=== PATIENT | female | born 1960 | race Caucasian/White ===

== ENCOUNTER → 2017-06-25 07:39 | Outpatient (CLI) | payer MEDICARE, OTHER, SELFPAY ==
[2017-06-25 08:50] LABS: Basophils # 0.1 K/mm3 (0-0.2); Basophils % 0.5 % (0.1-2.0); Eosinophils # 0.2 K/mm3 (0.0-0.4); Eosinophils % 2.1 % (0.1-12.0); Hematocrit 42.8 % (37.0-47.0); Hemoglobin 14.8 g/dL (12.2-16.2); Lymphocytes % 29.4 K/mm3 (10-50); Mean Corpuscular HGB Conc 34.7 g/dL (31.8-35.4); Mean Corpuscular Hemoglobin 30.9 pg (27.0-31.2); Mean Corpuscular Volume 89.2 fl (81-99); Mean Platelet Volume 7.8 fl (7.4-10.4); Monocytes # 0.4 K/mm3 (0.1-1.0); Monocytes % 4.1 % (1.7-9.3); Neutrophils # 6.5 K/mm3 (1.8-7.8); Neutrophils % 63.9 % (37.0-80.0); Platelet Count 273 K/mm3 (142-424); Red Cell Distribution Width 14.1 % (11.5-17.5); White Blood Count 10.1 K/mm3 (4.8-10.8)
[2017-06-25 13:00] LABS: Alanine Aminotransferase 39 U/L (12-78); Albumin Level 4.2 gm/dL (3.4-5.0); Albumin/Globulin Ratio 1.3 (1.1-1.8); Alkaline Phosphatase 96 U/L (46-116); Anion Gap 20.5 mEq/L (5-15); Aspartate Amino Transferase 25 U/L (15-37); Bilirubin,Total 0.4 mg/dL (0.2-1.0); Blood Urea Nitrogen 10 mg/dL (7-18); Calcium 9.2 mg/dL (8.5-10.1); Carbon Dioxide 23 mmol/L (21.0-32.0); Chloride 94 mmol/L (98-107); Creatinine,Serum 0.65 mg/dL (0.55-1.02); Estimated Glomerular Filt Rate 94 ml/min (>60); GFR (African American) 114 ML/MIN (>60); Globulin 3.3 gm/dl (1.3-3.2); Glucose 124 mg/dL (74-106); Potassium 3.5 mmoL/L (3.5-5.1); Sodium 134 mmol/L (136-145); Total Protein,Serum 7.5 gm/dL (6.4-8.2)
[2017-06-25 14:20] LABS: Chol/HDL Ratio 3.3 (1-3.5); Cholesterol 111 mg/dL (140-200); HDL Cholesterol 34 mg/dL (29-89); LDL Cholesterol 55 mg/dL (0-130); Triglycerides 110 mg/dL (30-200); VLDL Cholesterol 22 mg/dL (0-40)
== END ==
PROVIDERS: Visit Provider Nurse Practitioner Family
DX: I10 Essential (primary) hypertension (principal); R73.9 Hyperglycemia, unspecified; E78.5 Hyperlipidemia, unspecified; Z72.0 Tobacco use
CPT/HCPCS: 36415; 80053; 80061; 83036; 85025

== ENCOUNTER → 2017-07-14 09:46 | Outpatient (CLI) | payer MEDICARE, OTHER, SELFPAY ==
--- NOTE | 2017-07-14 | MM_ITS ---
MM Dig screening mamm BI w/CAD CAD Screening ORDERING PHYSICIAN : Duke Kohli MD PATIENT AGE: 56 years GENDER: Female INDICATION: Routine screening no hormones previous cyst aspiration left breast Family history. Paternal grandmother with breast cancer postmenopausal COMPARISON. June: 2016, 2015, 2014 2013 & November 2011 TECHNIQUE: Standard CC and MLO images were obtained. Additional axillary cc view both breast included R2 CAD reviewed. FINDINGS: The prior films are very helpful and supportive the heterogeneous, mild asymmetric, moderately dense breast pattern has remain stable bilaterally . . No new areas of significant concern. No dominant mass nor suspicious calcifications. There are some small calcifications bilaterally but these are scattered punctate benign-appearing and can be followed RIGHT BREAST:No significant new areas of concern. Areas of minimal retroareolar density density seen on one view dissipates on another is been seen on multiple previous studies-stable A few tiny punctate benign-appearing calcifications grouped at the superior right breast which appears similar to previous studies and can be followed LEFT BREAST:Scattered areas of density Areas of density seen today are similar to previous studies and dissipate from one view to another. Similar appearance dates back to 2014 IMPRESSION: ...... 1. . No significant new areas of concern Moderately dense heterogeneous breast, with mild asymmetry. Difficult to evaluate mammogram but appears overall stable. Would encourage & emphasized bilateral follow-up in one year. BI-RADS Category: 2 Benign Finding(s) RECOMMENDED FOLLOW-UP: 1YR - 1 YEAR FOLLOW-UP (A letter has been sent to the patient regarding results of the study.)
== END ==
PROVIDERS: Family Provider Nurse Practitioner Family; PCP Internal Medicine Adolescent Medicine; Visit Provider Internal Medicine Adolescent Medicine
DX: Z12.31 Encounter for screening mammogram for malignant neoplasm of breast (principal)
CPT/HCPCS: 77067

== ENCOUNTER → 2017-07-21 10:11 | Outpatient (CLI) | payer MEDICARE, OTHER, SELFPAY ==
--- NOTE | 2017-07-21 10:18 | US_ITS ---
US transvaginal HISTORY: ITS.REASON: Post MENOPAUSAL BLEEDING,DYSPAREUNIA ORDERING PHYSICIAN: Seda Travis PATIENT AGE: 56 years Comparison: None FINDINGS: The uterus measures 6 x 3 x 3.5 cm. The endometrium is slightly thickened at 1 cm. No uterine or endometrial mass evident. The left ovary is 2 x 1.4 cm with an unremarkable appearance. The right ovary is 1.9 x 1 cm and has an unremarkable appearance. There is a small amount fluid in the cul-de-sac. IMPRESSION: Mildly thickened endometrium with small amount of cul-de-sac fluid otherwise negative pelvic ultrasound
== END ==
PROVIDERS: Family Provider Nurse Practitioner Family; PCP Internal Medicine Adolescent Medicine; Visit Provider Nurse Practitioner Family
DX: N95.0 Postmenopausal bleeding (principal); N94.10 Unspecified dyspareunia
CPT/HCPCS: 76830

== ENCOUNTER → 2018-02-11 07:41 | Outpatient (CLI) | payer MEDICARE, OTHER, SELFPAY ==
[2018-02-11 08:31] LABS: Basophils # 0.1 K/mm3 (0-0.2); Basophils % 0.6 % (0.1-2.0); Eosinophils # 0.3 K/mm3 (0.0-0.4); Hematocrit 45.4 % (37.0-47.0); Hemoglobin 15.2 g/dL (12.2-16.2); Lymphocytes # 4.4 K/mm3 (0.7-4.5); Lymphocytes % 34.1 % (10-50); Mean Corpuscular HGB Conc 33.4 g/dL (31.8-35.4); Mean Corpuscular Hemoglobin 30.4 pg (27.0-31.2); Mean Platelet Volume 7.7 fl (7.4-10.4); Monocytes # 0.6 K/mm3 (0.1-1.0); Monocytes % 4.3 % (1.7-9.3); Neutrophils # 7.6 K/mm3 (1.8-7.8); Neutrophils % 58.9 % (37.0-80.0); Platelet Count 320 K/mm3 (142-424); Red Blood Count 4.99 M/mm3 (4.20-5.40); Red Cell Distribution Width 14.9 % (11.5-17.5); White Blood Count 12.8 K/mm3 (4.8-10.8)
[2018-02-11 09:12] LABS: Hemoglobin A1C 6.3 % (0.0-7.0)
[2018-02-11 09:31] LABS: Alanine Aminotransferase 48 U/L (12-78); Albumin Level 4.3 gm/dL (3.4-5.0); Albumin/Globulin Ratio 1.3 (1.1-1.8); Alkaline Phosphatase 99 U/L (46-116); Anion Gap 17.8 mEq/L (5-15); Aspartate Amino Transferase 22 U/L (15-37); Bilirubin,Total 0.3 mg/dL (0.2-1.0); Blood Urea Nitrogen 12 mg/dL (7-18); Calcium 9.3 mg/dL (8.5-10.1); Carbon Dioxide 26 mmol/L (21.0-32.0); Chloride 101 mmol/L (98-107); Chol/HDL Ratio 3.6 (1-3.5); Cholesterol 134 mg/dL (140-200); Creatinine,Serum 0.84 mg/dL (0.55-1.02); Estimated Glomerular Filt Rate 70 ml/min (>60); GFR (African American) 84 ML/MIN (>60); Globulin 3.3 gm/dl (1.3-3.2); Glucose 122 mg/dL (74-106); HDL Cholesterol 37 mg/dL (29-89); LDL Cholesterol 62 mg/dL (0-130); Potassium 3.8 mmoL/L (3.5-5.1); Sodium 141 mmol/L (136-145); Total Protein,Serum 7.6 gm/dL (6.4-8.2); Triglycerides 177 mg/dL (30-200); VLDL Cholesterol 35 mg/dL (0-40)
== END ==
PROVIDERS: Visit Provider Nurse Practitioner Family
DX: Z51.81 Encounter for therapeutic drug level monitoring (principal); R73.03 Prediabetes; E78.5 Hyperlipidemia, unspecified; I10 Essential (primary) hypertension; F25.8 Other schizoaffective disorders
CPT/HCPCS: 36415; 80053; 80061; 83036; 85025

== ENCOUNTER → 2018-05-26 07:04 | Outpatient (CLI) | payer MEDICARE, OTHER, SELFPAY ==
[2018-05-26 08:07] LABS: Basophils # 0.1 K/mm3 (0-0.2); Basophils % 0.6 % (0.1-2.0); Eosinophils # 0.2 K/mm3 (0.0-0.4); Eosinophils % 2.1 % (0.1-12.0); Hematocrit 41.1 % (37.0-47.0); Hemoglobin 14.3 g/dL (12.2-16.2); Lymphocytes # 3.5 K/mm3 (0.7-4.5); Lymphocytes % 30.6 % (10-50); Mean Corpuscular HGB Conc 34.8 g/dL (31.8-35.4); Mean Corpuscular Hemoglobin 30.9 pg (27.0-31.2); Mean Corpuscular Volume 88.8 fl (81-99); Mean Platelet Volume 7.6 fl (7.4-10.4); Monocytes # 0.4 K/mm3 (0.1-1.0); Monocytes % 3.7 % (1.7-9.3); Neutrophils # 7.2 K/mm3 (1.8-7.8); Platelet Count 285 K/mm3 (142-424); Red Blood Count 4.64 M/mm3 (4.20-5.40); Red Cell Distribution Width 14.6 % (11.5-17.5); White Blood Count 11.4 K/mm3 (4.8-10.8)
[2018-05-26 10:51] LABS: Alanine Aminotransferase 33 U/L (12-78); Albumin Level 4.3 gm/dL (3.4-5.0); Albumin/Globulin Ratio 1.3 (1.1-1.8); Alkaline Phosphatase 105 U/L (46-116); Anion Gap 18.2 mEq/L (5-15); Aspartate Amino Transferase 18 U/L (15-37); Bilirubin,Total 0.4 mg/dL (0.2-1.0); Blood Urea Nitrogen 9 mg/dL (7-18); Calcium 9.2 mg/dL (8.5-10.1); Carbon Dioxide 24 mmol/L (21.0-32.0); Chloride 100 mmol/L (98-107); Chol/HDL Ratio 3.7 (1-3.5); Cholesterol 118 mg/dL (140-200); Creatinine,Serum 0.78 mg/dL (0.55-1.02); Estimated Glomerular Filt Rate 76 ml/min (>60); GFR (African American) 92 ML/MIN (>60); Globulin 3.3 gm/dl (1.3-3.2); Glucose 114 mg/dL (74-106); HDL Cholesterol 32 mg/dL (29-89); LDL Cholesterol 60 mg/dL (0-130); Potassium 4.2 mmoL/L (3.5-5.1); Sodium 138 mmol/L (136-145); Total Protein,Serum 7.6 gm/dL (6.4-8.2); Triglycerides 129 mg/dL (30-200); VLDL Cholesterol 26 mg/dL (0-40)
[2018-05-26 12:26] LABS: Hemoglobin A1C 5.9 % (0.0-7.0)
== END ==
PROVIDERS: Visit Provider Nurse Practitioner Family
DX: I10 Essential (primary) hypertension (principal); R73.03 Prediabetes; E78.5 Hyperlipidemia, unspecified; F25.8 Other schizoaffective disorders
CPT/HCPCS: 36415; 80053; 80061; 83036; 85025

== ENCOUNTER → 2018-11-09 15:58 | Outpatient (CLI) | payer MEDICARE, OTHER, SELFPAY ==
--- NOTE | 2018-11-09 16:03 | MM_ITS ---
PROCEDURE: MM DIG SCREENING MAMM BI W/CAD Patient Age:58Y CLINICAL INDICATION: SCREENING A 58-year-old no hormones no new complaints. Previous benign excisional biopsy and cyst aspiration involving both breast. Family history.: Paternal grandmother with breast cancer COMPARISON: [facility] DIG MAMM-SCREEN RENA from 06/22/2014 [facility] DIG MAMM-SCREEN RENA from 06/26/2015 [facility] DIG MAMM-SCREEN RENA W/CAD from 07/09/2016 [facility] MM Dig screening mamm BI w/CAD from 07/14/2017 Also bilateral mammogram studies from November 2011 and 2012 utilized TECHNIQUE: Standard CC and MLO images were obtained. R2 CAD reviewed. FINDINGS: Moderate heterogeneous breast density the stable appearing mild asymmetry . Right breast: No new areas of significant concern The slight asymmetric area of fibroglandular density at the superior breast on MLO view and central breast CC view matches areas seen on previous studies dating back to at least 2015, 2014 as well as back to 2011. Also note small scattered punctate calcifications bilaterally are also similar to previous studies and can be followed bilaterally Left breast: no new areas of significant concern. Similar architecture no dominant mass evident IMPRESSION: Stable bilateral mammogram, with no new areas of significant concern. Moderate breast density Bilateral follow-up in 1 year recommended BI-RAD Category: 2 Benign Finding(s) FOLLOW-UP: 1YR 1 Year Follow-up (A letter has been sent to the patient regarding results of the study.) Dictated by: Mikie Molina MD 11/10/2018 07:38 Electronically signed by Mikie Molina MD in [place] 11/10/2018 07:38
== END ==
PROVIDERS: PCP Internal Medicine Adolescent Medicine; Visit Provider Nurse Practitioner Family
DX: Z12.31 Encounter for screening mammogram for malignant neoplasm of breast (principal)
CPT/HCPCS: 77067

== ENCOUNTER → 2018-12-31 16:28 | Outpatient (CLI) | payer MEDICARE, OTHER, SELFPAY ==
[2018-12-31 17:03] LABS: Basophils # 0.1 K/mm3 (0-0.2); Basophils % 0.6 % (0.1-2.0); Eosinophils # 0.2 K/mm3 (0.0-0.4); Eosinophils % 1.5 % (0.1-12.0); Hematocrit 43.7 % (37.0-47.0); Hemoglobin 14.9 g/dL (12.2-16.2); Lymphocytes # 4.1 K/mm3 (0.7-4.5); Lymphocytes % 26.9 % (10-50); Mean Corpuscular Hemoglobin 30.5 pg (27.0-31.2); Mean Corpuscular Volume 89.6 fl (81-99); Mean Platelet Volume 7.5 fl (7.4-10.4); Monocytes # 0.8 K/mm3 (0.1-1.0); Monocytes % 5.4 % (1.7-9.3); Neutrophils # 10.1 K/mm3 (1.8-7.8); Neutrophils % 65.6 % (37.0-80.0); Platelet Count 374 K/mm3 (142-424); Red Blood Count 4.87 M/mm3 (4.20-5.40); Red Cell Distribution Width 14.4 % (11.5-17.5); White Blood Count 15.4 K/mm3 (4.8-10.8)
[2018-12-31 17:08] LABS: MANUAL DIFFERENTIAL MANUAL DIFFERENTIAL (MANUAL DIFF)
[2018-12-31 17:46] LABS: Hemoglobin A1C 6.2 % (0.0-7.0)
[2018-12-31 18:50] LABS: Lymphocytes % 27 % (10-50); Monocytes % 5 % (2-9); Neutrophils % 66 % (42-76); Platelet Estimate Normal; RBC Morphology Normal; Total Cells Counted 100
[2018-12-31 19:27] LABS: Alanine Aminotransferase 44 U/L (12-78); Albumin Level 4.8 gm/dL (3.4-5.0); Albumin/Globulin Ratio 1.4 (1.1-1.8); Alkaline Phosphatase 109 U/L (46-116); Anion Gap 11.7 mEq/L (5-15); Aspartate Amino Transferase 43 U/L (15-37); Bilirubin,Total 0.3 mg/dL (0.2-1.0); Blood Urea Nitrogen 9 mg/dL (7-18); Carbon Dioxide 30 mmol/L (21.0-32.0); Chloride 94 mmol/L (98-107); Estimated Glomerular Filt Rate 86 ml/min (>60); GFR (African American) 104 ML/MIN (>60); Globulin 3.4 gm/dl (1.3-3.2); Glucose 68 mg/dL (74-106); HDL Cholesterol 51 mg/dL (29-89); Potassium 3.7 mmoL/L (3.5-5.1); Sodium 132 mmol/L (136-145); Thyroid Stimulating Hormone 4.26 uIU/ml (0.358-3.740); Total Protein,Serum 8.2 gm/dL (6.4-8.2); Triglycerides 100 mg/dL (30-200); VLDL Cholesterol 20 mg/dL (0-40)
[2018-12-31 19:37] LABS: Calcium 10.1 mg/dL (8.5-10.1); Chol/HDL Ratio 2.2 (1-3.5); Cholesterol 113 mg/dL (140-200); LDL Cholesterol 42 mg/dL (0-130)
== END ==
PROVIDERS: Visit Provider Nurse Practitioner Family
DX: E78.5 Hyperlipidemia, unspecified (principal); I10 Essential (primary) hypertension; R73.9 Hyperglycemia, unspecified; F25.8 Other schizoaffective disorders
CPT/HCPCS: 36415; 80053; 80061; 83036; 84443; 85007; 85025

== ENCOUNTER → 2019-01-10 11:26 | Outpatient (CLI) | payer MEDICARE, OTHER, SELFPAY ==
[2019-01-10 11:58] LABS: Basophils # 0.1 K/mm3 (0-0.2); Basophils % 0.5 % (0.1-2.0); Eosinophils # 0.2 K/mm3 (0.0-0.4); Eosinophils % 1.9 % (0.1-12.0); Hematocrit 41.7 % (37.0-47.0); Hemoglobin 13.7 g/dL (12.2-16.2); Lymphocytes # 4.4 K/mm3 (0.7-4.5); Lymphocytes % 34.8 % (10-50); Mean Corpuscular Hemoglobin 30.9 pg (27.0-31.2); Mean Corpuscular Volume 93.9 fl (81-99); Monocytes # 0.5 K/mm3 (0.1-1.0); Monocytes % 3.7 % (1.7-9.3); Neutrophils # 7.5 K/mm3 (1.8-7.8); Neutrophils % 59.2 % (37.0-80.0); Platelet Count 311 K/mm3 (142-424); Red Blood Count 4.44 M/mm3 (4.20-5.40); Red Cell Distribution Width 14.7 % (11.5-17.5); White Blood Count 12.6 K/mm3 (4.8-10.8)
[2019-01-10 14:13] LABS: Anion Gap 15.9 mEq/L (5-15); Blood Urea Nitrogen 7 mg/dL (7-18); Calcium 9.2 mg/dL (8.5-10.1); Carbon Dioxide 25 mmol/L (21.0-32.0); Chloride 94 mmol/L (98-107); Creatinine,Serum 0.64 mg/dL (0.55-1.02); Estimated Glomerular Filt Rate 95 ml/min (>60); Free T4 (Free Thyroxine) 0.72 ng/dl (0.76-1.46); GFR (African American) 115 ML/MIN (>60); Glucose 75 mg/dL (74-106); Potassium 3.9 mmoL/L (3.5-5.1); Sodium 131 mmol/L (136-145); Thyroid Stimulating Hormone 3.31 uIU/ml (0.358-3.740)
[2019-01-12 11:30] LABS: Peripheral Smear Review Scanned Result
== END ==
PROVIDERS: Visit Provider Nurse Practitioner Family
DX: E87.1 Hypo-osmolality and hyponatremia (principal); R79.89 Other specified abnormal findings of blood chemistry; D72.9 Disorder of white blood cells, unspecified
CPT/HCPCS: 36415; 80048; 84439; 84443; 85025

== ENCOUNTER → 2019-03-03 11:05 | Outpatient (CLI) | payer MEDICARE, OTHER, SELFPAY ==
[2019-03-03 11:40] LABS: Basophils # 0.1 K/mm3 (0-0.2); Basophils % 0.8 % (0.1-2.0); Eosinophils # 0.3 K/mm3 (0.0-0.4); Eosinophils % 2.9 % (0.1-12.0); Hematocrit 40.3 % (37.0-47.0); Hemoglobin 13.4 g/dL (12.2-16.2); Lymphocytes # 3.3 K/mm3 (0.7-4.5); Mean Corpuscular HGB Conc 33.3 g/dL (31.8-35.4); Mean Corpuscular Hemoglobin 30.7 pg (27.0-31.2); Mean Platelet Volume 8.2 fl (7.4-10.4); Monocytes # 0.4 K/mm3 (0.1-1.0); Monocytes % 3.6 % (1.7-9.3); Neutrophils # 5.8 K/mm3 (1.8-7.8); Neutrophils % 58.8 % (37.0-80.0); Platelet Count 269 K/mm3 (142-424); Red Blood Count 4.38 M/mm3 (4.20-5.40); Red Cell Distribution Width 14.6 % (11.5-17.5); White Blood Count 9.8 K/mm3 (4.8-10.8)
[2019-03-03 18:28] LABS: Anion Gap 20.6 mEq/L (5-15); Blood Urea Nitrogen 12 mg/dL (7-18); Carbon Dioxide 23 mmol/L (21.0-32.0); Chloride 103 mmol/L (98-107); Creatinine,Serum 0.83 mg/dL (0.55-1.02); Estimated Glomerular Filt Rate 70 ml/min (>60); GFR (African American) 85 ML/MIN (>60); Glucose 117 mg/dL (74-106); Potassium 3.6 mmoL/L (3.5-5.1); Sodium 143 mmol/L (136-145)
== END ==
PROVIDERS: Visit Provider Internal Medicine Medical Oncology
DX: D72.829 Elevated white blood cell count, unspecified (principal)
CPT/HCPCS: 36415; 80048; 85025; 88189

== ENCOUNTER → 2019-03-17 09:22 | Outpatient (CLI) | payer MEDICARE, SELFPAY ==
[2019-03-17 09:54] LABS: Hemoglobin A1C 6.2 % (0.0-7.0)
[2019-03-17 18:55] LABS: Anion Gap 15.7 mEq/L (5-15); Blood Urea Nitrogen 10 mg/dL (7-18); Calcium 9.2 mg/dL (8.5-10.1); Carbon Dioxide 27 mmol/L (21.0-32.0); Chloride 105 mmol/L (98-107); Estimated Glomerular Filt Rate 64 ml/min (>60); GFR (African American) 78 ML/MIN (>60); Glucose 116 mg/dL (74-106); Potassium 3.7 mmoL/L (3.5-5.1); Sodium 144 mmol/L (136-145); Thyroid Stimulating Hormone 2.42 uIU/ml (0.358-3.740)
== END ==
PROVIDERS: Visit Provider Nurse Practitioner Family
DX: R73.9 Hyperglycemia, unspecified (principal); E87.1 Hypo-osmolality and hyponatremia
CPT/HCPCS: 36415; 80048; 83036; 84443

== ENCOUNTER → 2019-03-18 08:13 | Outpatient (CLI) | payer MEDICARE, SELFPAY ==
--- NOTE | 2019-03-18 08:19 | CT_ITS ---
PROCEDURE: CT LUNG SCREENING CLINICAL INDICATION: CURRENT TOBACOO USE Forty pack-year smoking history, asymptomatic for lung cancer COMPARISON: No exams were available for comparison TECHNIQUE: The exam was performed on a GE Light Speed [address] scanner using 2.90 mGy CTDI. A low dose helical CT CHEST was performed on a multi-detector scanner. All CT scans at the facility use one or more dose reduction, viz: automated exposure control, ma/kV adjustment per patient size (including targeted exams where dose is matched to indication, i.e. head), or iterative reconstruction technique. The LDCT was performed in a facility that meets the criteria for the screening program. Data regarding this exam was submitted to ACR which is an approved registry. The order for this exam indicates that it came as a result of a lung cancer screening counseling shard decision-making visit that included all the elements required of such a visit including smoking cessation. The radiologist interpreting this exam meets the CMS criteria for the LDCT lung cancer screening program. The exam is reported using the Lung-RADS classification scale and reported to the ACR registry. NOTE: This study was performed for the specific purposes of lung cancer screening and is not an alternative to diagnostic chest CT. RADIATION DOSE: CTDI vol(CT dose Index-volume) = 2.90mG DLP (Dose Length Product) = 106.03 mGcm Lung Rads Category: FINDINGS: Changes of COPD with scattered areas of scarring and evidence of old granulomatous disease. There is a 5 mm subpleural nodule in the left lower lobe laterally series 4, image 54. 4 mm nodular opacity right apex centrally series 4, image 18. No central obstructing lesion. No hilar mass or mediastinal mass. OTHER FINDINGS: Hiatal hernia. Coronary artery calcifications. There is a left renal mass which is incompletely imaged occupying the mid and upper aspect of the left kidney. This measures at least 8 cm transverse and 4.8 cm AP. IMPRESSION: Lung rads category 3 probably benign nodules in the left lower lobe and right upper lobe. Recommend six-month chest CT follow-up Incompletely imaged left renal mass suspicious for neoplasm. Recommend abdomen CT without and with contrast with delayed imaging/renal protocol for further evaluation Dictated by: Gigi Alberts MD 03/22/2019 08:50 Electronically signed by Gigi Alberts MD in [place] 03/22/2019 08:50
== END ==
PROVIDERS: PCP Internal Medicine Adolescent Medicine; Visit Provider Internal Medicine Medical Oncology
DX: Z87.891 Personal history of nicotine dependence (principal); Z12.2 Encounter for screening for malignant neoplasm of respiratory organs

== ENCOUNTER → 2019-03-24 12:13 | Outpatient (CLI) | payer MEDICARE, OTHER, SELFPAY ==
[2019-03-24 13:07] LABS: Blood Urea Nitrogen 11 mg/dL (7-18); Creatinine,Serum 0.78 mg/dL (0.55-1.02); Estimated Glomerular Filt Rate 76 ml/min (>60); GFR (African American) 91 ML/MIN (>60)
== END ==
PROVIDERS: Visit Provider Nurse Practitioner Family
DX: R73.03 Prediabetes (principal)
CPT/HCPCS: 36415; 82565; 84520

== ENCOUNTER → 2019-03-29 08:39 | Outpatient (CLI) | payer MEDICARE, SELFPAY ==
--- NOTE | 2019-03-29 08:48 | CT_ITS ---
PROCEDURE: CT ABDOMEN WO/W CON CLINICAL HISTORY: RENAL MASS Follow-up renal mass. Suspected renal mass noted on screening lung CT COMPARISON: CT LUNG SCREENING from 03/18/2019 TECHNIQUE: Exam is performed without and with contrast. 75 mL Optiray 350 utilized. Delayed images are also obtained. Axial images obtained with sagittal and coronal reformats. All CT scans at the facility use one or more dose reduction, viz: automated exposure control, ma/kV adjustment per patient size (including targeted exams where dose is matched to indication, i.e. head), or iterative reconstruction technique. FINDINGS: There is calcified granuloma in the right lung base. The coronary artery calcifications are present in there is mild thickening of the pericardium. There is a small hiatal hernia. The liver, gallbladder, right kidney, adrenal glands, and pancreas have an unremarkable appearance as does the spleen. There is moderate to severe left hydronephrosis with dilatation of the pelvicaliceal system and the renal pelvis. The ureter is not dilated. These findings are consistent with high-grade UPJ stenosis/obstruction. A renal mass is not apparent. IMPRESSION: High-grade left-sided UPJ stenosis/obstruction with moderate to severe hydrocephalus. A renal mass is not identified. The abnormality noted on the screening CT is related to the hydronephrosis Dictated by: Gigi Alberts MD 03/30/2019 12:50 Electronically signed by Gigi Alberts MD in [place] 03/30/2019 12:50
== END ==
PROVIDERS: PCP Internal Medicine Adolescent Medicine; Visit Provider Nurse Practitioner Family
DX: N28.89 Other specified disorders of kidney and ureter (principal)
CPT/HCPCS: 74170; Q9967

== ENCOUNTER → 2019-04-04 12:25 | Outpatient (CLI) | payer MEDICARE, SELFPAY ==
--- NOTE | 2019-04-04 12:45 | NM_ITS ---
PROCEDURE: NM RENAL FLOW W PHARM INT CLINICAL INDICATION: LT UPJ OBSTRUCTION COMPARISON: No exams were available for comparison TECHNIQUE: Routine exam was performed after 9.8 millicuries technetium 99 M Mag 3 administration. 40 milligrams of Lasix was given total 20 milligrams at 15 minutes and 20 milligrams at 16 minutes into the exam. FINDINGS: There is a delayed left nephrogram. The T-max for the left kidney is 20.9 minutes and that for the right kidney 11.4 minutes. Percent excreted at 15 minutes was 10 percent for left kidney and 37 percent for right kidney. Relative function was left kidney 54 percent and right kidney 46 percent. The pre Lasix left renal time activity curve was continuously upsloping. Post Lasix renal curves demonstrate a gradual decline in activity in the left kidney with rapid decline in the right kidney. IMPRESSION: Findings consistent with some degree of left urinary tract obstruction but downsloping curve post Lasix administration argues against high-grade obstruction. Dictated by: Jr Vale 04/04/2019 16:20 Electronically signed by Jr Vale in [place] 04/04/2019 16:20
== END ==
PROVIDERS: PCP Internal Medicine Adolescent Medicine; Visit Provider Urology
DX: N21.1 Calculus in urethra (principal)
CPT/HCPCS: 78708; A9562

== ENCOUNTER → 2019-04-07 15:21 | Outpatient (CLI) | payer MEDICARE, OTHER, SELFPAY | PROVIDERS: Visit Provider Urology | DX: N21.1 Calculus in urethra (principal) | CPT/HCPCS: 87086 ==

== ENCOUNTER → 2019-07-28 09:04 | Outpatient (CLI) | payer MEDICARE, OTHER, SELFPAY ==
[2019-07-28 10:03] LABS: Basophils # 0.1 K/mm3 (0-0.2); Basophils % 0.6 % (0.1-2.0); Eosinophils # 0.4 K/mm3 (0.0-0.4); Eosinophils % 3.2 % (0.1-12.0); Hematocrit 40.1 % (37.0-47.0); Hemoglobin 13.3 g/dL (12.2-16.2); Lymphocytes # 3.1 K/mm3 (0.7-4.5); Lymphocytes % 27.8 % (10-50); Mean Corpuscular HGB Conc 33.2 g/dL (31.8-35.4); Mean Corpuscular Hemoglobin 30.3 pg (27.0-31.2); Mean Corpuscular Volume 91.3 fl (81-99); Mean Platelet Volume 8.2 fl (7.4-10.4); Monocytes # 0.4 K/mm3 (0.1-1.0); Monocytes % 3.4 % (1.7-9.3); Neutrophils # 7.3 K/mm3 (1.8-7.8); Platelet Count 250 K/mm3 (142-424); Red Blood Count 4.39 M/mm3 (4.20-5.40); Red Cell Distribution Width 13.9 % (11.5-17.5); White Blood Count 11.3 K/mm3 (4.8-10.8)
[2019-07-28 11:04] LABS: Chloride 103 mmol/L (98-107); Potassium 4.1 mmoL/L (3.5-5.1); Sodium 138 mmol/L (136-145)
[2019-07-28 11:06] LABS: Alanine Aminotransferase 37 U/L (12-78); Aspartate Amino Transferase 29 U/L (14-36); Blood Urea Nitrogen 11 mg/dl (7-17); Estimated Glomerular Filt Rate 102 ml/min (>60); GFR (African American) 123 ML/MIN (>60)
[2019-07-28 11:07] LABS: Albumin Level 4.6 g/dl (3.5-5.0); Albumin/Globulin Ratio 1.8 (1.1-1.8); Alkaline Phosphatase 101 U/L (38-126); Anion Gap 14.1 mEq/L (5-15); Bilirubin,Total 0.5 mg/dl (0.2-1.3); Calcium 9.5 mg/dl (8.4-10.2); Carbon Dioxide 25 mmol/L (22.0-30.0); Globulin 2.6 g/dL (1.3-3.2); Glucose 160 mg/dl (74-100); Total Protein,Serum 7.2 g/dl (6.3-8.2)
[2019-07-28 11:28] LABS: Hemoglobin A1C 6.7 % (4.0-6.0)
[2019-07-28 11:37] LABS: Thyroid Stimulating Hormone 2.88 uIU/mL (0.465-4.68)
[2019-07-29 10:10] LABS: MANUAL DIFFERENTIAL MANUAL DIFFERENTIAL (MANUAL DIFF)
[2019-07-29 11:10] LABS: Eosinophils % 2 % (0-3); Lymphocytes % 41 % (10-50); Monocytes % 7 % (2-9); Neutrophils % 50 % (42-76); Total Cells Counted 100
[2019-07-29 11:11] LABS: Burr Cells 1+; Platelet Estimate Normal; Poikilocytosis 1+
== END ==
PROVIDERS: Visit Provider Nurse Practitioner Family
DX: R73.03 Prediabetes (principal); E03.9 Hypothyroidism, unspecified; D72.9 Disorder of white blood cells, unspecified; I10 Essential (primary) hypertension
CPT/HCPCS: 36415; 80053; 83036; 84443; 85007; 85014; 85018; 85025; 85048; 85049

== ENCOUNTER → 2019-08-11 08:56 | Outpatient (CLI) | payer MEDICARE, SELFPAY ==
[2019-08-11 10:11] LABS: Blood Urea Nitrogen 11 mg/dl (7-17); Estimated Glomerular Filt Rate 85 ml/min (>60); GFR (African American) 103 ML/MIN (>60)
== END ==
PROVIDERS: Visit Provider Internal Medicine Medical Oncology
DX: R91.8 Other nonspecific abnormal finding of lung field (principal)
CPT/HCPCS: 36415; 82565; 84520

== ENCOUNTER → 2019-08-16 13:28 | Outpatient (CLI) | payer MEDICARE, SELFPAY ==
--- NOTE | 2019-08-16 13:35 | CT_ITS ---
PROCEDURE: CT CHEST W CON CLINCAL INDICATION: LUNG NODULES Follow-up lung nodules COMPARISON: CT LUNG SCREENING from 03/18/2019 CT ABDOMEN WO/W CON from 03/29/2019 TECHNIQUE: IV Contrast: 75ml Optiray 350 Axial images obtained with sagittal and coronal reformats. All CT scans at the facility use one or more dose reduction, viz: automated exposure control, ma/kV adjustment per patient size (including targeted exams where dose is matched to indication, i.e. head), or iterative reconstruction technique. FINDINGS: HEART AND MEDIASTINAL STRUCTURES: Minimal pericardial thickening posteriorly measuring up to 5 mm. No mediastinal or hilar mass or adenopathy. There is mild nonspecific thickening of the esophagus distally LUNGS AND PLEURAL SPACES: COPD with scattered areas of scarring. 4 mm noncalcified nodule right upper lobe centrally probably. This appears slightly more prominent but could be related to the slice orientation. Continued follow-up is suggested. Subpleural 4 mm nodular opacity noted in the right upper lobe posteriorly probably unchanged image number 21. Evidence of old granulomatous disease. There are trace bilateral effusions which have developed since the previous exam. No change in the 4 mm subpleural nodule in the left lower lobe the. There are some atelectatic changes in the left lung base laterally which have developed since the previous exam. No new nodules are evident. BONY STRUCTURES: No acute bony abnormalities apparent. UPPER ABDOMEN: Small hiatal hernia. Fatty liver. The left kidney is not included on today's exam. ADDITIONAL FINDINGS: No other significant abnormalities. IMPRESSION: There are small bilateral pulmonary nodules. The right apical nodule may be slightly more prominent but could be related to technique. Recommend continued six-month follow-up. Small bilateral pleural effusions with left basilar atelectasis Other nonacute findings as detailed above with COPD Dictated by: Gigi Alberts MD 08/17/2019 12:45 Electronically signed by Gigi Alberts MD in [place] 08/17/2019 12:45
== END ==
PROVIDERS: PCP Internal Medicine Adolescent Medicine; Visit Provider Internal Medicine Medical Oncology
DX: R91.8 Other nonspecific abnormal finding of lung field (principal)
CPT/HCPCS: 71260; Q9967

== ENCOUNTER → 2019-12-09 13:09 | Outpatient (CLI) | payer MEDICARE, SELFPAY ==
--- NOTE | 2019-12-09 13:15 | MM_ITS ---
PROCEDURE: MM DIG SCREENING MAMM BI W/CAD Digital Breast Tomosynthesis Included CLINICAL INDICATION: SCREENING There is a history of breast cancer in the patient's paternal grandmother. There have been previous biopsies on each breast for benign disease. COMPARISON: MG [facility] DIG MAMM-SCREEN RENA W/CAD from 07/09/2016 [facility] MM Dig screening mamm BI w/CAD from 07/14/2017 MG MM DIG SCREENING MAMM BI W/CAD from 11/09/2018 TECHNIQUE: Standard CC and MLO images and 3D Tomosynthesis was obtained. R2 CAD reviewed. FINDINGS: Moderate diffuse somewhat heterogenic fibroglandular densities are seen in both breasts. There is a mole marker left breast. There are couple of benign-appearing microcalcifications in each breast. There is no suspicious lesion and no suspicious microcalcifications. IMPRESSION: Moderate diffuse breast density with no suspicious lesions seen BI-RAD Category: 2 Benign Finding(s) FOLLOW-UP: 1YR 1 Year Follow-up (A letter has been sent to the patient regarding results of the study.) Dictated by: Dr. Antwan Avila MD 12/13/2019 16:43 Dr. Antwan Avila MD in [place] 12/13/2019 16:43
== END ==
PROVIDERS: PCP Internal Medicine Adolescent Medicine; Visit Provider Nurse Practitioner Family
DX: Z12.31 Encounter for screening mammogram for malignant neoplasm of breast (principal)
CPT/HCPCS: 77063; 77067

== ENCOUNTER → 2020-02-06 16:03 | Outpatient (CLI) | payer MEDICARE, SELFPAY ==
[2020-02-06 16:40] LABS: Basophils # 0.1 K/mm3 (0-0.2); Eosinophils # 0.4 K/mm3 (0.0-0.4); Eosinophils % 3.1 % (0.1-12.0); Hematocrit 43.3 % (37.0-47.0); Hemoglobin 14.5 g/dL (12.2-16.2); Lymphocytes # 4.8 K/mm3 (0.7-4.5); Lymphocytes % 34.7 % (10-50); Mean Corpuscular HGB Conc 33.5 g/dL (31.8-35.4); Mean Corpuscular Hemoglobin 30.4 pg (27.0-31.2); Mean Platelet Volume 8.1 fl (7.4-10.4); Monocytes # 0.5 K/mm3 (0.1-1.0); Monocytes % 3.6 % (1.7-9.3); Neutrophils # 7.9 K/mm3 (1.8-7.8); Neutrophils % 57.6 % (37.0-80.0); Platelet Count 317 K/mm3 (142-424); Red Blood Count 4.76 M/mm3 (4.20-5.40); Red Cell Distribution Width 14.7 % (11.5-17.5); White Blood Count 13.7 K/mm3 (4.8-10.8)
[2020-02-06 17:06] LABS: Alanine Aminotransferase 38 U/L (12-78); Albumin Level 5.3 g/dl (3.5-5.0); Albumin/Globulin Ratio 1.7 (1.1-1.8); Alkaline Phosphatase 107 U/L (38-126); Anion Gap 12.7 mEq/L (5-15); Aspartate Amino Transferase 35 U/L (14-36); Bilirubin,Total 0.4 mg/dl (0.2-1.3); Blood Urea Nitrogen 12 mg/dl (7-17); Calcium 10.2 mg/dl (8.4-10.2); Carbon Dioxide 30 mmol/L (22.0-30.0); Chloride 100 mmol/L (98-107); Chol/HDL Ratio 3.4 (1-3.5); Cholesterol 147 mg/dl (140-200); Estimated Glomerular Filt Rate 73 ml/min (>60); GFR (African American) 89 ML/MIN (>60); Globulin 3.1 g/dL (1.3-3.2); Glucose 94 mg/dl (74-100); HDL Cholesterol 43 mg/dl (40-60); Potassium 3.7 mmoL/L (3.5-5.1); Sodium 139 mmol/L (136-145); Total Protein,Serum 8.4 g/dl (6.3-8.2); Triglycerides 266 mg/dl (30-150); VLDL Cholesterol 53 mg/dL (0-40)
[2020-02-06 17:17] LABS: Direct LDL Cholesterol 65.96 mg/dL (100-129)
[2020-02-06 17:36] LABS: Thyroid Stimulating Hormone 4.73 uIU/mL (0.465-4.68)
[2020-02-06 18:58] LABS: Hemoglobin A1C 6.1 % (4.0-6.0)
== END ==
PROVIDERS: Visit Provider Nurse Practitioner Family
DX: I10 Essential (primary) hypertension (principal); E78.5 Hyperlipidemia, unspecified; R73.03 Prediabetes; D72.9 Disorder of white blood cells, unspecified; E03.9 Hypothyroidism, unspecified
CPT/HCPCS: 36415; 80053; 80061; 83036; 84443; 85025

== ENCOUNTER → 2020-02-28 14:19 | Outpatient (CLI) | payer MEDICARE, SELFPAY ==
--- NOTE | 2020-02-28 14:36 | CT_ITS ---
PROCEDURE: CT CHEST W CON CLINCAL INDICATION: LUNG NODULE follow up COMPARISON: CT CT CHEST W CON from 08/16/2019 TECHNIQUE: IV Contrast: 75ml Isovue 370 Axial images obtained with sagittal and coronal reformats. All CT scans at the facility use one or more dose reduction, viz: automated exposure control, ma/kV adjustment per patient size (including targeted exams where dose is matched to indication, i.e. head), or iterative reconstruction technique. FINDINGS: HEART AND MEDIASTINAL STRUCTURES: Unremarkable. LUNGS AND PLEURAL SPACES: There remain small pulmonary nodular opacities as previously described. These do not significantly changed. Nodules identified. There is a calcified granuloma in the right lower lobe. There are trace bilateral effusions. Changes of COPD BONY STRUCTURES: No acute bony abnormalities apparent. UPPER ABDOMEN: Fatty liver. Severe left-sided hydronephrosis which is incompletely imaged. ADDITIONAL FINDINGS: No other significant abnormalities. IMPRESSION: Overall stable CT appearance of the chest. No change in the small pulmonary nodules and trace bilateral pleural effusions. Severe left-sided hydronephrosis. This was described on a previous abdomen CT of 03/29/2019. Dictated by: Gigi Alberts MD 02/29/2020 09:09 Gigi Alberts MD in [place] 02/29/2020 09:09
[2020-02-28 14:38] LABS: Basophils # 0.1 K/mm3 (0-0.2); Basophils % 0.9 % (0.1-2.0); Eosinophils # 0.4 K/mm3 (0.0-0.4); Hematocrit 42.5 % (37.0-47.0); Lymphocytes # 4.7 K/mm3 (0.7-4.5); Lymphocytes % 36.6 % (10-50); Mean Corpuscular Hemoglobin 30.6 pg (27.0-31.2); Mean Corpuscular Volume 92.7 fl (81-99); Mean Platelet Volume 8.3 fl (7.4-10.4); Monocytes # 0.5 K/mm3 (0.1-1.0); Monocytes % 3.9 % (1.7-9.3); Neutrophils # 7.2 K/mm3 (1.8-7.8); Neutrophils % 55.5 % (37.0-80.0); Platelet Count 290 K/mm3 (142-424); Red Blood Count 4.58 M/mm3 (4.20-5.40); White Blood Count 12.9 K/mm3 (4.8-10.8)
[2020-02-28 14:51] LABS: Blood Urea Nitrogen 11 mg/dl (7-17); Estimated Glomerular Filt Rate 85 ml/min (>60); GFR (African American) 103 ML/MIN (>60)
== END ==
PROVIDERS: Visit Provider Internal Medicine Medical Oncology
DX: R91.1 Solitary pulmonary nodule (principal)
CPT/HCPCS: 36415; 71260; 82565; 84520; 85025; Q9967

== ENCOUNTER → 2020-04-17 12:46 | Outpatient (CLI) | payer MEDICARE, SELFPAY ==
--- NOTE | 2020-04-17 12:52 | NM_ITS ---
PROCEDURE: NM RENAL FLOW AND FUNCTION CLINICAL INDICATION: left upj obstruction-- lasix w-T 02/17 COMPARISON: CT CT ABDOMEN WO/W CON from 03/29/[address] CHEST W CON from 02/28/2020 TECHNIQUE: Dose 9.94 mCi technetium Mag 3. 40 mg Lasix given IV at 15 minutes FINDINGS: Flow images show slight decrease intensity of the left kidney compared to the right additionally. There is delayed ureteral excretion of the left kidney. Periphery in [place] uptake is 60 percent to the left kidney in 40 percent to the right kidney. At 20 minutes only a percent of the left renal contents had emptied and 88 percent on the right. T max on the right 4.2 minutes. T max on the left 17.7 minutes. Kidney T half max on the right is 15.7 minutes and on the left is 6 minutes. The left renal curve rises and peaks at 18 minutes. The curved continued to rise slightly after Lasix administration but then began coming down. One would expect a curve to increased much more if there was an obstruction therefore, it was felt that the hydronephrosis on the left is secondary to a patulous system as opposed to a UPJ obstruction.. There may have once been a obstruction at the UPJ with chronic left-sided hydronephrosis. IMPRESSION: Overall, the findings are consistent with a dilated left renal collecting system as opposed to a UPJ obstruction. Dictated by: Gigi Alberts MD 04/18/2020 13:50 Gigi Alberts MD in [place] 04/18/2020 13:50
== END ==
PROVIDERS: PCP Internal Medicine Adolescent Medicine; Visit Provider Urology
DX: N13.5 Crossing vessel and stricture of ureter without hydronephrosis (principal)
CPT/HCPCS: 78707; A9562

== ENCOUNTER → 2020-08-30 14:54 | Outpatient (CLI) | payer MEDICARE, OTHER, SELFPAY ==
[2020-08-30 15:30] LABS: Basophils # 0.1 K/mm3 (0-0.2); Basophils % 1.1 % (0.1-2.0); Eosinophils # 0.4 K/mm3 (0.0-0.4); Eosinophils % 2.8 % (0.1-12.0); Hematocrit 38.2 % (37.0-47.0); Hemoglobin 13.3 g/dL (12.2-16.2); Lymphocytes # 4.5 K/mm3 (0.7-4.5); Lymphocytes % 35.5 % (10-50); Mean Corpuscular HGB Conc 34.7 g/dL (31.8-35.4); Mean Corpuscular Hemoglobin 29.9 pg (27.0-31.2); Mean Corpuscular Volume 86.1 fl (81-99); Mean Platelet Volume 8.3 fl (7.4-10.4); Monocytes # 0.5 K/mm3 (0.1-1.0); Monocytes % 3.9 % (1.7-9.3); Neutrophils # 7.2 K/mm3 (1.8-7.8); Neutrophils % 56.7 % (37.0-80.0); Platelet Count 275 K/mm3 (142-424); Red Blood Count 4.44 M/mm3 (4.20-5.40); Red Cell Distribution Width 14.8 % (11.5-17.5); White Blood Count 12.8 K/mm3 (4.8-10.8)
[2020-08-30 16:10] LABS: Hemoglobin A1C 6.2 % (4.0-6.0)
[2020-08-30 16:23] LABS: Alanine Aminotransferase 38 U/L (12-78); Albumin Level 4.9 g/dl (3.5-5.0); Albumin/Globulin Ratio 1.9 (1.1-1.8); Alkaline Phosphatase 95 U/L (38-126); Anion Gap 17.1 mEq/L (5-15); Aspartate Amino Transferase 31 U/L (14-36); Bilirubin,Total 0.4 mg/dl (0.2-1.3); Blood Urea Nitrogen 10 mg/dl (7-17); Calcium 9.6 mg/dl (8.4-10.2); Carbon Dioxide 25 mmol/L (22.0-30.0); Chloride 103 mmol/L (98-107); Chol/HDL Ratio 4.2 (1-3.5); Cholesterol 135 mg/dl (140-200); Estimated Glomerular Filt Rate 102 ml/min (>60); GFR (African American) 123 ML/MIN (>60); Globulin 2.6 g/dL (1.3-3.2); Glucose 114 mg/dl (74-100); HDL Cholesterol 32 mg/dl (40-60); Potassium 4.1 mmoL/L (3.5-5.1); Sodium 141 mmol/L (136-145); Total Protein,Serum 7.5 g/dl (6.3-8.2); Triglycerides 271 mg/dl (30-150); VLDL Cholesterol 54 mg/dL (0-40)
[2020-08-30 16:34] LABS: Direct LDL Cholesterol 61.16 mg/dL (100-129)
[2020-08-30 16:53] LABS: Thyroid Stimulating Hormone 2.66 uIU/mL (0.465-4.68)
== END ==
PROVIDERS: Visit Provider Nurse Practitioner Family
DX: I10 Essential (primary) hypertension (principal); E78.5 Hyperlipidemia, unspecified; E03.9 Hypothyroidism, unspecified; R73.03 Prediabetes; D72.9 Disorder of white blood cells, unspecified
CPT/HCPCS: 36415; 80053; 80061; 83036; 84443; 85025

== ENCOUNTER → 2020-12-11 16:08 | Outpatient (CLI) | payer MEDICARE, OTHER, SELFPAY ==
--- NOTE | 2020-12-11 16:10 | MM_ITS ---
PROCEDURE: MM DIG SCREENING MAMM BI W/CAD Digital Breast Tomosynthesis Included CLINICAL INDICATION: SCREENING There is a history of breast cancer in the patient's paternal grandmother. There have been previous biopsies on each breast for benign disease. COMPARISON: [facility] MM Dig screening mamm BI w/CAD from 07/14/2017 MG MM DIG SCREENING MAMM BI W/CAD from 11/09/2018 MG MM DIG SCREENING MAMM BI W/CAD from 12/09/2019 TECHNIQUE: Standard CC and MLO images and 3D Tomosynthesis was obtained. R2 CAD reviewed. FINDINGS: Moderate diffuse fibroglandular densities are seen throughout both breast. There is a mole marker left breast. There are few benign-appearing microcalcifications in each breast. A single CAD marker left breast was reviewed and appears to be benign. There is no suspicious lesion in either breast and no suspicious microcalcifications. IMPRESSION: Moderate breast density with no suspicious lesions seen BI-RAD Category: 2 Benign Finding(s) FOLLOW-UP: 1YR 1 Year Follow-up (A letter has been sent to the patient regarding results of the study.) Dictated by: Dr. Antwan Avila MD 12/12/2020 15:33 Dr. Antwan Avila MD in [place] 12/12/2020 15:33
== END ==
PROVIDERS: PCP Internal Medicine Adolescent Medicine; Visit Provider Nurse Practitioner Family
DX: Z12.31 Encounter for screening mammogram for malignant neoplasm of breast (principal)
CPT/HCPCS: 77063; 77067

== ENCOUNTER → 2021-02-25 14:45 | Outpatient (CLI) | payer MEDICARE, OTHER, SELFPAY ==
--- NOTE | 2021-02-25 14:52 | CT_ITS ---
FINAL REPORT CLINICAL HISTORY: H/O NICOTINE DEPENDENCE// low dose lung// scanned in report from prior scan COMPARISON: February 28, 2020 FINDINGS: Low-Dose Chest CT CTDI vol (mGy): 2.90 DLP (mGy-cm): 102.64 Axial images were obtained from the lung apex to the mid abdomen by computed tomography. Low-dose protocol was utilized. FINDINGS: CHEST: There is no axillary adenopathy. There is no hilar or mediastinal adenopathy. The heart is proper size. There is no pericardial or pleural effusion. Limited images of the upper abdomen is demonstrates presumed, severe left hydronephrosis which is partly imaged. Lung window images demonstrate several calcified granulomas. There are small nodules in the right upper lobe measuring up to 4 mm which are stable. There is a ground-glass nodule in the left upper lobe measuring 5 mm which is stable. There are no new masses or nodules identified. There is mild scarring. IMPRESSION: Lung RADS category 2. Recommend 12 month follow-up low-dose chest CT. Reviewed, Interpreted and Dictated by Jayden Driver III, MD Transcribed by Myriam Isabel Authenticated by Jayden Driver III, MD on 02/25/2021 04:00:57 PM [facility]
== END ==
PROVIDERS: PCP Internal Medicine Adolescent Medicine; Visit Provider Internal Medicine Medical Oncology
DX: Z87.891 Personal history of nicotine dependence (principal); Z12.2 Encounter for screening for malignant neoplasm of respiratory organs
CPT/HCPCS: 71271

== ENCOUNTER → 2021-11-04 09:54 | Outpatient (CLI) | payer MEDICARE, OTHER, SELFPAY ==
--- NOTE | 2021-11-04 10:00 | XR_ITS ---
FINAL REPORT CLINICAL HISTORY: ACUTE COUGH, TOBACCO USE FINDINGS: 2 views of the chest were obtained . The heart is normal in size. The mediastinum is within normal limits. There are mild chronic changes at the lung bases. A calcified granuloma is seen of the right lung base. The lungs are otherwise clear. There is no pneumothorax. Osseous structures are unremarkable. IMPRESSION: No acute cardiopulmonary process. Reviewed, Interpreted and Dictated by Jerry Sanchez MD Transcribed by Alejandra De Authenticated and [facility]
== END ==
PROVIDERS: PCP Nurse Practitioner Family; Visit Provider Nurse Practitioner Family
DX: R05.1 Acute cough (principal); Z72.0 Tobacco use
CPT/HCPCS: 71046

== ENCOUNTER → 2021-12-19 12:43 | Outpatient (CLI) | payer MEDICARE, OTHER, SELFPAY ==
--- NOTE | 2021-12-19 12:49 | MM_ITS ---
PROCEDURE INFORMATION: Exam: MG Bilateral Screening 3D Mammography Exam date and time: 12/19/2021 12:53 PM Age: 61 years old Clinical indication: Screening examination TECHNIQUE: Imaging protocol: Bilateral Screening tomosynthesis and 2D mammography including computer-aided detection (CAD) when performed. COMPARISON: 1. MG MM DIG SCREENING MAMM BI W/CAD 12/11/2020 4:10 PM 2. MG MM DIG SCREENING MAMM BI W/CAD 12/09/2019 1:19 PM 3. MG MM DIG SCREENING MAMM BI W/CAD 11/09/2018 4:32 PM 4. MG [facility] MM Dig screening mamm BI w/CAD 07/14/2017 10:11 AM FINDINGS: MAMMOGRAPHY: Breast composition: There are scattered areas of fibroglandular density. Mass: None. Architectural distortion: No new or suspicious architectural distortion. Calcifications: Stable benign-appearing calcifications are present. No new or suspicious cluster of microcalcifications have developed. Asymmetric density: No new or suspicious asymmetric density is present Skin thickening: None. Axillary adenopathy: None. IMPRESSION: No mammographic evidence of malignancy. Recommend annual screening mammography unless otherwise clinically indicated. ASSESSMENT: BI-RADS category 2: Benign
== END ==
PROVIDERS: PCP Nurse Practitioner Family; Visit Provider Nurse Practitioner Family
DX: Z12.31 Encounter for screening mammogram for malignant neoplasm of breast (principal)
CPT/HCPCS: 77063; 77067

== ENCOUNTER → 2022-02-26 15:03 | Outpatient (CLI) | payer MEDICARE, SELFPAY ==
--- NOTE | 2022-02-26 15:09 | CT_ITS ---
FINAL REPORT CLINICAL HISTORY: H/O NICOTINE DEPENDENCE. currently smokes 1 pack per day x45 years COMPARISON: February 28, 2020 and February 25, 2021 FINDINGS: Low-Dose Chest CT Axial images were obtained from the lung apex to the mid abdomen by computed tomography. Low-dose protocol was utilized. CTDI vol (mGy): 2.90 DLP (mGy-cm): 106.29 There is no axillary adenopathy. There is no hilar or mediastinal adenopathy. The heart is proper size. There is moderate coronary artery calcifications. There is no pericardial or pleural effusion. There is a small hiatal hernia. Lung window images demonstrate mild pulmonary scarring. There are several small right upper lobe nodules measuring up to 4 mm which are stable. There is a 4 mm pleural based nodule in the posterior right upper lobe which is stable. There is a calcified granuloma in the right lower lobe. There is a 3 mm lateral left lower lobe nodule which is stable. Limited images of the upper abdomen demonstrates partially visualized severe left hydronephrosis which is stable.. IMPRESSION: Stable nodules as above. Lung RADS category 2. Recommend 12 month follow-up low-dose chest CT. Reviewed, Interpreted and Dictated by Jayden Driver III, MD Transcribed by Myriam Isabel Authenticated and [facility]
== END ==
PROVIDERS: PCP Nurse Practitioner Family; Visit Provider Internal Medicine Medical Oncology
DX: Z87.891 Personal history of nicotine dependence (principal); Z12.2 Encounter for screening for malignant neoplasm of respiratory organs; R91.8 Other nonspecific abnormal finding of lung field
CPT/HCPCS: 71271

== ENCOUNTER → 2022-11-25 11:45 | Outpatient (CLI) | payer MEDICARE, SELFPAY ==
[2022-11-25 13:11] VITALS: BMI 33.2
== END ==
LOC: DIETICIAN 11:46
PROVIDERS: PCP Nurse Practitioner Family; Visit Provider Nurse Practitioner Family
DX: R73.09 Other abnormal glucose (principal); Z71.3 Dietary counseling and surveillance
CPT/HCPCS: 97802

== ENCOUNTER → 2022-12-03 09:54 | Outpatient (CLI) | payer MEDICARE, SELFPAY ==
--- NOTE | 2022-12-03 09:58 | US_ITS ---
FINAL REPORT TECHNIQUE: Ultrasound images of the kidneys and bladder were obtained. CLINICAL HISTORY: RENA HYDRONEPHROSIS COMPARISON: None FINDINGS: The right kidney measures 12.6 cm in length. It is normal in echogenicity. There is no hydronephrosis. The left kidney measures 14.2 cm in length. It is normal in echogenicity. There is severe left hydronephrosis present. Fatty infiltration of the liver is identified. IMPRESSION: Severe left hydronephrosis. Fatty infiltration of the liver. Reviewed, Interpreted and Dictated by Jayden Driver III, MD Transcribed by Jeanna Kaur Authenticated and [facility]
== END ==
PROVIDERS: PCP Nurse Practitioner Family; Visit Provider Nurse Practitioner Family
DX: N13.30 Unspecified hydronephrosis (principal)
CPT/HCPCS: 76770

== ENCOUNTER → 2022-12-22 09:07 | Outpatient (CLI) | payer MEDICARE, SELFPAY ==
--- NOTE | 2022-12-22 09:12 | MM_ITS ---
PROCEDURE INFORMATION: Exam: MG Bilateral Screening 3D Mammography Exam date and time: 12/22/2022 9:11 AM Age: 62 years old Clinical indication: Screening mammogram. Family history of breast cancer in grandmother TECHNIQUE: Imaging protocol: Bilateral Screening tomosynthesis and 2D mammography including computer-aided detection (CAD) when performed. COMPARISON: 1. MG MM DIG SCREENING MAMM BI W/CAD 12/19/2021 12:53 PM 2. MG MM DIG SCREENING MAMM BI W/CAD 12/11/2020 4:10 PM 3. MG MM DIG SCREENING MAMM BI W/CAD 12/09/2019 1:19 PM 4. MG MM DIG SCREENING MAMM BI W/CAD 11/09/2018 4:32 PM FINDINGS: MAMMOGRAPHY: Breast composition: There are scattered areas of fibroglandular density. Mass: None. Architectural distortion: No new or suspicious architectural distortion. Calcifications: Stable benign-appearing calcifications are present. No new or suspicious cluster of microcalcifications have developed. Asymmetric density: No new or suspicious asymmetric density is present Skin thickening: None. Axillary adenopathy: None. IMPRESSION: No mammographic evidence of malignancy. Recommend annual screening mammography unless otherwise clinically indicated. ASSESSMENT: BI-RADS category 2: Benign
--- NOTE | 2022-12-22 09:52 | XR_ITS ---
FINAL REPORT TECHNIQUE: Bone densitometry calculations of the lumbar spine and left hip were obtained. CLINICAL HISTORY: Osteoporosis screening COMPARISON: None FINDINGS: Using L1-4, the bone mineral density of the spine is 1.179 g/cm2, corresponding to T-score of 1.2 and a Z score of 2.8. This is within the range of normal. Using the left hip, the bone mineral density of the femoral neck is 1.008 g/cm2, corresponding to a T-score of 0.5 and a Z-score of 1.7. This is within the range of normal. FRAX not reported because all T-scores at or above -1.0. NOTE: T-score: Standard deviation compared with peak bone mass of young adult mean. *Following the recommendations of the International Society of Bone densitometry, classification of hip BMD is based on the lower of two T-scores; total hip or femoral neck. IMPRESSION: 1. Bone mineral density of the lumbar spine within the range of normal. 2. Bone mineral density of the left femoral neck within the range of normal. Reviewed, Interpreted and Dictated by Yuridia Romero MD Transcribed by Janet Marcelino Authenticated and [facility]
== END ==
PROVIDERS: PCP Nurse Practitioner Family; Visit Provider Nurse Practitioner Family
DX: Z12.31 Encounter for screening mammogram for malignant neoplasm of breast (principal); Z78.0 Asymptomatic menopausal state
CPT/HCPCS: 77063; 77067; 77080

== ENCOUNTER 2023-08-14 10:23 | Day surgery (SDC) | payer MEDICARE, SELFPAY ==
[2023-08-13 11:33] VITALS: BMI 31.8
[2023-08-14] MEDS: LACTATED RINGERS 1000ML 1,000 ML 25 ML IV (10:39)
[2023-08-14 10:42] VITALS: BP 144/90; PULSE 68; RESP 18; TEMP 36.6; O2SAT 97
--- NOTE | 2023-08-14 10:44 | HMH.SCOPE ---
Procedure: Date: 08/14/23 Patient Date of :: 1960 Procedure Performed:: Colonoscopy to terminal ileum with polypectomy using biopsy forceps Indications:: Patient is a 63-year-old female referred for screening colonoscopy. She does state that she had a colonoscopy she believes about 5 years or so ago in [place] but she does not recall the details. She states that she is past due . . Performing Provider:: Jayden Tadeo MD Referring Provider:: Xuan Travis Sedation:: MAC sedation Procedure:: Patient history was obtained and appropriate physical examination was performed. Patient's medications and allergies were reviewed. Informed consent was obtained after explaining the benefits, alternatives, and risks of the procedure including, but not limited to, bleeding, perforation, missed lesions, and adverse reaction to anesthesia medications. Patient was transported to endoscopy procedure room. Patient was connected to monitoring devices. Throughout the procedure the patient's blood pressure, pulse, and oxygen saturations were monitored continuously. Patient identification and planned procedure were verified by the staff. Patient was positioned in lateral decubitus position. Digital anorectal exam was performed. Variable stiffness Olympus colonoscope was inserted and advanced under direct visualization to the cecum. Adequacy of the colonic preparation was noted. The colonoscope was advanced a short distance into the terminal ileum. The colonoscope was then slowly withdrawn while carefully examining the color, texture, anatomy, and integrity of the mucosoa circumferentially. Within the rectum retroflexion was performed. Colonoscope was then withdrawn. Impression: Advancement of the colonoscope to the cecum was somewhat difficult due to significant redundancy and floppiness of the sigmoid colon. Colonoscope was advanced a generous distance into the terminal ileum which appeared grossly normal. It was slowly withdrawn through the colon. There were multiple rectosigmoid polyps larger of which were removed and biopsied with cold biopsy forceps. There were too numerous to count hyperplastic appearing rectal polyps. Larger and ones that appeared more suspicious for possible adenoma were removed with biopsy forceps. . Findings:: Numerous hyperplastic appearing rectosigmoid and rectal polyps, multiple biopsies performed Recommendations:: Follow-up colonoscopy pending pathology. If no adenomatous component likely 5 years. However, if any adenomatous component recommended repeat colonoscopy in 3 to 5 years Complications:: None immediately apparent Estimated blood obtained (mL): 1 Colonoscopy Component Colonoscopy Component Was a colonoscopy performed during today's procedure?: Yes Recommended follow up colonoscopy of at least 10 years?: No If no, follow up colonoscopy recommended in ___ years?: See above Reason for not recommending >/= 10 yr follow-up interval?: See above
[2023-08-14 10:50] VITALS: O2SAT 98
[2023-08-14 10:52] LABS: POC Glucose,Bedside 95 (70-110)
[2023-08-14 11:39] VITALS: BP 109/65; PULSE 62; RESP 12; TEMP 36.7; O2SAT 97
[2023-08-14 11:49] VITALS: BP 121/78; PULSE 64; RESP 18; O2SAT 94
[2023-08-14 11:59] VITALS: BP 131/80; PULSE 60; RESP 16; O2SAT 96
[2023-08-14 12:09] VITALS: BP 133/81; PULSE 64; RESP 18; O2SAT 96
--- NOTE | 2023-08-14 12:41 | P.PNANES_ITS ---
[facility] Disclaimer: The information contained in this section may have been updated after the patient was seen, as this information can be updated by other users. Medical History Diabetes mellitus, type 2 Hypertension Surgical History (Updated 08/14/23 @ 10:41 by Magdy Del Angel RN) History of D&C Family History Other Family history of stroke Social History Smoking Status: Current every day smoker tobacco type: cigarettes packs per day: 1 second hand exposure: Yes alcohol intake: never substance use type: denies use current occupational status: retired Travel in the last 8 weeks: None household members: spouse housing: house current occupational exposures/hazards: No caffeine: Yes [facility] Anesthesia Checklist Patient Identification Patient Identification: Verbal (Name & ) Structural Data Admitted From: Home Planned Operative Procedure/s: colonoscopy Consent for Planned Operative Procedure(s) Verified: Yes Additional verifications Anesthesia Reactions: No Hx Blood Transfusions: No Blood Transfusion Reaction: No Airway Assessment Mallampati Score:: Class II C-Spine Mobility Assessed: Yes TMJ Mobility Assessed: Yes Dentition: Good Dentition Neurological Assessment Level of Consciousness: Awake, Alert and Appropriate Anesthesia Plan Anesthesia Risk discussed: Yes Anesthesia Plan: Verified ASA Class: III Anesthesia Type: MAC
== END 2023-08-14 12:10 | disposition home or self-care (01) ==
PROVIDERS: PCP Nurse Practitioner Family; Visit Provider Surgery
PROC: 0DJD8ZZ Inspection of Lower Intestinal Tract, Via Natural or Artificial Opening Endoscopic (ICD-10-PCS; CPT 45380; principal; 2023-08-14 11:30)
DX: Z12.11 Encounter for screening for malignant neoplasm of colon (principal); D12.7 Benign neoplasm of rectosigmoid junction; K62.1 Rectal polyp
CPT/HCPCS: 45380; 82962; J2704; J7120

== ENCOUNTER 2023-09-11 13:28 | Outpatient (CLI) | payer MEDICARE, SELFPAY ==
--- NOTE | 2023-09-11 13:32 | CT_ITS ---
FINAL REPORT TECHNIQUE: Axial CT images of the chest were obtained without contrast. Low-dose protocol was utilized. This study was performed with techniques to keep radiation doses as low as reasonably achievable (ALARA). Individualized dose reduction techniques using automated exposure control or adjustment of mA and/or kV according to the patient's size were employed. CLINICAL HISTORY: LUNG CANCER SCREENING SMOKER, 1 PK PER DAY X 40 YRS FAMILY HX OF LUNG CA COMPARISON: 02/26/2022 FINDINGS: CT CHEST WITHOUT, LOW DOSE SCREENING CT Di Vol: 2.90 mGy DLP: On 14.11 mGy*cm There is no axillary, mediastinal, or hilar adenopathy. The heart size is normal. There are trace bilateral pleural effusions. A small pericardial effusion is noted. The lung windows show interval development of a spiculated nodule in the left upper lobe measuring 19 x 19 mm. There is a 4 mm nodule in the right lung apex which is stable. There is a 4 mm subpleural nodule in the left lower lobe.. Limited images of the upper abdomen demonstrate severe chronic left hydronephrosis.. IMPRESSION: Interval development of a spiculated left upper lobe nodule. LR Category 4B: PET-CT recommended. Reviewed, Interpreted and Dictated by Shantel An MD Transcribed by Janet Marcelino Authenticated and [facility]
== END 2023-09-11 23:59 | disposition home or self-care (01) ==
LOC: RAD 13:28
PROVIDERS: PCP Nurse Practitioner Family; Visit Provider Nurse Practitioner Family
DX: Z87.891 Personal history of nicotine dependence (principal); Z80.1 Family history of malignant neoplasm of trachea, bronchus and lung
CPT/HCPCS: 71271

== ENCOUNTER 2023-10-12 09:30 | Day surgery (SDC) | payer MEDICARE, SELFPAY ==
[2023-10-09 09:11] VITALS: BMI 30.2
[2023-10-12] VITALS (10 sets, daily range): BP systolic 112–147; BP diastolic 70–89; PULSE 54–82; RESP 16–18; TEMP 36.2–36.7; O2SAT 92–96
[2023-10-12] MEDS: LACTATED RINGERS 1000ML 1,000 ML 25 ML IV (09:38)
[2023-10-12 10:10] LABS: Basophils # 0.1 K/mm3 (0-0.2); Basophils % 0.9 % (0.1-2.0); Eosinophils # 0.4 K/mm3 (0.0-0.4); Eosinophils % 2.9 % (0.1-12.0); Hematocrit 43.6 % (37.0-47.0); Hemoglobin 13.8 g/dL (12.2-16.2); Lymphocytes % 24.8 % (10-50); Mean Corpuscular HGB Conc 31.6 g/dL (31.8-35.4); Mean Corpuscular Hemoglobin 29.3 pg (27.0-31.2); Mean Corpuscular Volume 92.6 fl (81-99); Mean Platelet Volume 8.6 fl (7.4-10.4); Monocytes # 0.5 K/mm3 (0.1-1.0); Monocytes % 3.9 % (1.7-9.3); Neutrophils # 8.1 K/mm3 (1.8-7.8); Neutrophils % 67.5 % (37.0-80.0); Platelet Count 346 K/mm3 (142-424); Red Blood Count 4.71 M/mm3 (4.20-5.40); Red Cell Distribution Width 15.1 % (11.5-17.5)
[2023-10-12 10:15] LABS: Chloride 104 mmol/L (98-107); Potassium 3.8 mmoL/L (3.5-5.1); Sodium 139 mmol/L (136-145)
[2023-10-12 10:18] LABS: Anion Gap 12.8 mEq/L (5-15); Blood Urea Nitrogen 10 mg/dl (7-17); Carbon Dioxide 26 mmol/L (22.0-30.0); Creatinine Clearance Estimated 74 mL/min (50-200); Estimated Glomerular Filt Rate 101 ml/min (>60); GFR (African American) 122 ML/MIN (>60); Glucose 115 mg/dl (74-100)
--- NOTE | 2023-10-12 11:59 | EXP.ANES.CKL ---
[facility] Disclaimer: The information contained in this section may have been updated after the patient was seen, as this information can be updated by other users. Medical History Hyperlipidemia COPD (chronic obstructive pulmonary disease) Smoking greater than 30 pack years Hilar lymphadenopathy Lung nodule seen on imaging study Diabetes mellitus, type 2 Hypertension Surgical History History of colonoscopy History of D&C Family History Other Family history of stroke Social History Smoking Status: Current every day smoker tobacco type: cigarettes packs per day: 1 second hand exposure: Yes alcohol intake: never substance use type: denies use current occupational status: retired Travel in the last 8 weeks: None household members: spouse housing: house current occupational exposures/hazards: No caffeine: Yes [facility] Anesthesia Checklist Patient Identification Patient Identification: Arm Band, Family and Verbal (Name & ) Structural Data Admitted From: Home Planned Operative Procedure/s: Bronch w/Bx & EBUS Consent for Planned Operative Procedure(s) Verified: Yes Verified Documents: Surgical Consent and History and Physical NPO Status Verified Time NPO: 20:00 Chart Verification Results Verified: CBC, BMP, ECG and Chest Xray Additional verifications Fingerstick Blood Glucose: 115 Patient : No Anesthesia Reactions: No Hx Blood Transfusions: No Blood Transfusion Reaction: No Previous Colonoscopy: Yes Cardiovascular Assessment Pulse Rhythm: Irregular Peripheral Edema: No Airway Assessment Mallampati Score:: Class III C-Spine Mobility Assessed: Yes (FROM demonstrated) TMJ Mobility Assessed: Yes Dentition: Poor Dentition (Multiple carried teeth. Nothing loose per pt.) Neurological Assessment Level of Consciousness: Awake, Alert, Appropriate and Follows Commands Hx Seizures: No Numbness or tingling in extremities: No Anesthesia Plan Anesthesia Risk discussed: Yes Anesthesia Plan: Verified ASA Class: III Anesthesia Type: General
--- NOTE | 2023-10-12 12:02 | ECG_ITS ---
APPROVED REPORT Exam: Resting ECG HR:66 bpm ECG Measurements Heart Rate 66 AXES IN 182 P 46 QRSd 97 QRS -3 QT 416 T 35 QTc 430 Conclusion SINUS RHYTHM LOW QRS VOLTAGE IN PRECORDIAL LEADS [QRS DEFLECTION < 1.0 mV IN CHEST LEADS] BORDERLINE ECG UNCONFIRMED REPORT Electronically signed by : Duke Kohli MD 10/12/2023 17:57:46
--- NOTE | 2023-10-12 13:19 | XR_ITS ---
FINAL REPORT CLINICAL HISTORY: bronch 1.1 min 15.82 mGy FINDINGS: A single fluoroscopic spot film was obtained for bronchoscopy. 1.1 minutes of fluoroscopy time was reported with 15.82 mGy. IMPRESSION: Fluoroscopic spot film for bronchoscopy as above. Reviewed, Interpreted and Dictated by Jerry Sancehz MD Transcribed by Alejandra De Authenticated and [facility]
[2023-10-12 13:33] LABS: POC Glucose,Bedside 107 (70-110)
--- NOTE | 2023-10-12 13:33 | EXP.ANES.I ---
[facility] Anesthesia Record Part I Anesthesia Record I Intake, IV Amount: 700 Hydration: Adequate Estimated blood loss (mL): 10 Urine output (mL): 0 Blood Products used (#): none Blood Pressure: 134/81 SaO2: 92 Pulse Rate: 82 Airway Patency: Patent Respiratory Rate: 16 Temperature: 97.8 F Patient is:: Awake (Talking) and Stable Stable to PACU at:: 13:26
[2023-10-12] MEDS: IPRATROPIUM/ALBUTEROL 3 ML NEB IH (13:34)
--- NOTE | 2023-10-12 13:44 | XR_ITS ---
FINAL REPORT CLINICAL HISTORY: post op bronch COMPARISON: 11/04/2021 FINDINGS: The heart size is normal. The mediastinum is normal. There is no focal infiltrate or edema. There are no pleural effusions. There is no pneumothorax. There is no osseous abnormality. IMPRESSION: No acute cardiopulmonary process Reviewed, Interpreted and Dictated by Jerry Sanchez MD Transcribed by Janet Marcelino Authenticated and [facility]
--- NOTE | 2023-10-12 13:59 | EXP.BRONCH.N ---
Procedure: Date: 10/12/23 Patient Date of :: 1960 Procedure Performed:: Bronchoscopy airway examination bronchiolar lavage, transbronchial lung biopsy and endobronchial ultrasound-guided fine-needle aspirate Indications:: Lung nodule and lymphadenopathy Performing Provider:: Ghislaine Zimmerman MD Referring Provider:: Dr: Seda Travis APRN Sedation:: General anesthesia Procedure:: Bronchoscopy airway examination bronchiolar lavage, transbronchial lung biopsy and endobronchial ultrasound-guided fine-needle aspirate: A clean EBUS bronchoscopy was advanced the ET tube and lymph node surveillance was performed. Patient noted to have lymphadenopathy at station 10R and station 7 and station 10L. Patient also noted to have borderline enlarged station 4L. EBUS FNA were performed at all four above mentioned lymph node stations and lymph node sample were sent in [employer]to[employer] for cytopathology examination EBUS bronchoscopy was retracted and a clean DIAGNOSTIC bronchoscopy was advanced through the ET tube and airways were examined up to subsegmental bronchi. Airways appeared grossly normal, no evidence of mucoid secretions, mucous plugging active bleeding/old blood clots noted. Bronchoalveolar lavage was performed in the LEFT UPPER LOBE with instillation of 60 cc normal saline with return of 30 cc back. BAL fluid was sent for cell count and differential along with bacterial fungal and AFB stain and cultures. Transbronchial biopsy was performed in the LEFT UPPER LOBE with a total of 5 biopsies performed and were sent in formalin for cytopathologic examination. Patient tolerated the procedure with no immediate acute complications. We will follow the patient in pulmonary clinic in 7 to 10 days. Findings:: Please see the procedure note Recommendations:: Postoperative bronchoscopy instruction Follow in pulmonary clinic in 5 days Complications:: No acute immediate complication Estimated blood obtained (mL): 5
--- NOTE | 2023-10-12 14:00 | P.PNANES_ITS ---
[facility] Anesthesia Record Part II Anesthesia Record Part II Discharge Time: 13:52 Destination: Surgical Day Care (OP Surgery) PACU nurse assessment reviewed?: Yes Patient Condition:: Good Anesthesia Complications:: None Swallowing reflex intact?: Yes Airway Patency: Patent Cyanosis?: No Blood Pressure: 112/70 SaO2: 93 Respiratory Rate: 18 Pulse Rate: 79 Temperature: 97.3 F Mental Status: Alert & Oriented Pain level:: 0 Nausea and/or vomitting:: None Intake, IV Amount: 700 Hydration: Adequate
[2023-10-14 07:40] LABS: POC Glucose,Bedside 112 (70-110)
== END 2023-10-12 14:22 | disposition home or self-care (01) ==
PROVIDERS: PCP Nurse Practitioner Family; Visit Provider Internal Medicine Pulmonary Disease
PROC: (CPT 31624; principal; 2023-10-12 10:45)
DX: R59.0 Localized enlarged lymph nodes (principal); R91.1 Solitary pulmonary nodule; E11.9 Type 2 diabetes mellitus without complications; I10 Essential (primary) hypertension; Z79.84 Long term (current) use of oral hypoglycemic drugs; Z79.899 Other long term (current) drug therapy; F17.210 Nicotine dependence, cigarettes, uncomplicated
CPT/HCPCS: 31624; 31628; 31653; 71045; 76000; 80048; 82962; 85025; 87070; 87102; 87116; 87186; 87205; 87206; 87305; 88112; 88173; 88305; 89051; 93005; J3490; J1100; J2250; J2405; J3010; J7120; J7620

== ENCOUNTER 2023-11-24 14:30 | Outpatient (POV) | payer MEDICARE, SELFPAY | END 2023-11-24 23:59 | disposition home or self-care (01) | LOC: SC 11-25 06:42 | PROVIDERS: Visit Provider Dermatology | DX: Z00.00 Encounter for general adult medical examination without abnormal findings (principal) ==

== ENCOUNTER 2023-11-26 08:05 | Outpatient (CLI) | payer MEDICARE, SELFPAY ==
[2023-11-26] MEDS: ALBUTEROL 0.083% 2.5 MG/3 ML NEB IH (09:42)
== END 2023-11-26 23:59 | disposition home or self-care (01) ==
PROVIDERS: PCP Nurse Practitioner Family; Visit Provider Internal Medicine Pulmonary Disease
DX: R06.09 Other forms of dyspnea (principal)
CPT/HCPCS: 94060; 94618; 94726; 94729; J7613

== ENCOUNTER 2024-01-11 16:55 | Outpatient (CLI) | payer MEDICARE, SELFPAY ==
--- NOTE | 2024-01-11 | MM_ITS ---
PROCEDURE INFORMATION: Exam: MG Bilateral Screening 3D Mammography Exam date and time: 01/11/2024 4:46 PM Age: 63 years old Clinical indication: Screening exam. TECHNIQUE: Imaging protocol: Bilateral Screening tomosynthesis and 2D mammography including computer-aided detection (CAD) when performed. COMPARISON: 1. MG MM DIG SCREENING MAMM BI W/CAD 12/22/2022 9:11 AM 2. MG MM DIG SCREENING MAMM BI W/CAD 12/19/2021 12:53 PM FINDINGS: MAMMOGRAPHY: Breast composition: There are scattered areas of fibroglandular density. Mass: No suspicious masses. Architectural distortion: None. Calcifications: No suspicious calcifications. Asymmetric density: None. Skin thickening: None. Axillary adenopathy: None. IMPRESSION: No mammographic evidence of malignancy. Annual screening is recommended unless otherwise clinically indicated. ASSESSMENT: BI-RADS Category 1: Negative.
== END 2024-01-11 23:59 | disposition home or self-care (01) ==
LOC: RAD 16:58
PROVIDERS: PCP Nurse Practitioner Family; Visit Provider Nurse Practitioner Family
DX: Z12.31 Encounter for screening mammogram for malignant neoplasm of breast (principal)
CPT/HCPCS: 77063; 77067

== ENCOUNTER 2024-02-29 10:23 | Outpatient (CLI) | payer MEDICARE, SELFPAY ==
--- NOTE | 2024-02-29 10:28 | XR_ITS ---
FINAL REPORT CLINICAL HISTORY: Ankle Pain x5 days COMPARISON: None FINDINGS: Three views show no evidence of acute displaced fracture or dislocation of the visualized bony architecture. The joint spaces appear normal. IMPRESSION: Unremarkable exam. Reviewed, Interpreted and Dictated by Shantel An MD Transcribed by Petra Loya Authenticated and [facility]
== END 2024-02-29 23:59 | disposition home or self-care (01) ==
LOC: RAD 10:26
PROVIDERS: PCP Nurse Practitioner Family; Visit Provider Specialist
DX: M25.572 Pain in left ankle and joints of left foot (principal)
CPT/HCPCS: 73610

== ENCOUNTER 2024-12-01 15:12 | Outpatient (CLI) | payer MEDICARE, OTHER, SELFPAY ==
--- NOTE | 2024-12-01 15:14 | CT_ITS ---
FINAL REPORT TECHNIQUE: Thin section axial images were obtained through the lungs using a low-dose technique per lung cancer screening protocol. Reconstruction images were obtained using the axial data. Exam was performed using dose reduction technique. CLINICAL HISTORY: lung cancer screening. Former smoker- quit 1 yr ago, smoked 2 ppd x40 yrs. COPD. Mother and father had lung cancer. COMPARISON: 09/11/2023 FINDINGS: CTDLvol: 2.90 DLP: 101.60 Former smoker 80 pack year history Lungs: There is a 4 mm medial left upper lobe nodule on series 4, image 21 which is unchanged. The previously seen spiculated 21 mm left upper lobe nodule has resolved. The subpleural left lower lobe nodule measuring 4 mm on series 4, image 52 is unchanged. The 4 mm posterior right upper lobe nodule on series 4, image 24 is stable. The 4 mm right apical nodule on image 17 is unchanged. No new nodule identified. There is evidence of prior granulomatous disease. Lymph nodes: No thoracic lymphadenopathy. Mediastinum: Heart size is normal. Pleura/pericardium: Small pericardial effusion is stable. Trace bilateral pleural effusions are stable. Other: Limited images of the upper abdomen again reveal chronic left hydronephrosis. No acute findings. IMPRESSION: Resolved spiculated left upper lobe nodule with otherwise stable bilateral small nodules. Modifier S: Stable chronic left hydronephrosis. Lung RADS: 2S Recommendation: 12 month follow-up low-dose chest CT Reviewed, Interpreted and Dictated by Yuridia Romero MD Transcribed by Janet Marcelino Authenticated and [facility]
== END 2024-12-01 23:59 | disposition home or self-care (01) ==
LOC: RAD 15:13
PROVIDERS: PCP Nurse Practitioner Family; Visit Provider Internal Medicine Pulmonary Disease
DX: Z12.2 Encounter for screening for malignant neoplasm of respiratory organs (principal); Z87.891 Personal history of nicotine dependence; J44.9 Chronic obstructive pulmonary disease, unspecified; R91.8 Other nonspecific abnormal finding of lung field; I31.39 Other pericardial effusion (noninflammatory); N13.30 Unspecified hydronephrosis; Z80.1 Family history of malignant neoplasm of trachea, bronchus and lung
CPT/HCPCS: 71271

== ENCOUNTER 2025-01-24 15:09 | Outpatient (CLI) | payer MEDICARE, OTHER, SELFPAY ==
--- NOTE | 2025-01-24 15:12 | MM_ITS ---
PROCEDURE INFORMATION: Exam: MG Bilateral Screening 3D Mammography Exam date and time: 01/24/2025 3:33 PM Age: 64 years old Clinical indication: Screening examination TECHNIQUE: Imaging protocol: Bilateral Screening tomosynthesis and 2D mammography including computer-aided detection (CAD) when performed. COMPARISON: 1. MG MM DIG SCREENING MAMM BI W/CAD 01/11/2024 4:46 PM 2. MG MM DIG SCREENING MAMM BI W/CAD 12/22/2022 9:11 AM FINDINGS: MAMMOGRAPHY: Breast composition: There are scattered areas of fibroglandular density. Mass: No suspicious masses. Architectural distortion: None. Calcifications: No suspicious calcifications. Asymmetric density: None. Skin thickening: None. Axillary adenopathy: None. IMPRESSION: No mammographic evidence of malignancy. Annual screening is recommended unless otherwise clinically indicated. ASSESSMENT: BI-RADS Category 1: Negative.
== END 2025-01-24 23:59 | disposition home or self-care (01) ==
LOC: RAD 15:10
PROVIDERS: PCP Nurse Practitioner Family; Visit Provider Internal Medicine Adolescent Medicine
DX: Z12.31 Encounter for screening mammogram for malignant neoplasm of breast (principal); R92.323 Mammographic fibroglandular density, bilateral breasts
CPT/HCPCS: 77063; 77067